=== PATIENT | female | born 2000 | race Caucasian/White ===

== ENCOUNTER 2022-01-19 08:06 | Outpatient (CLI) | payer BC | END 2022-01-19 08:07 | disposition home or self-care (01) | LOC: CT 08:06 | PROVIDERS: ATTEND Physician Assistant Medical | DX: R11.2 Nausea with vomiting, unspecified (principal); R51.9 Headache, unspecified; R42 Dizziness and giddiness | CPT/HCPCS: 70450 ==

== ENCOUNTER 2022-04-21 21:42 | Emergency (ER) | payer BC | END 2022-04-21 22:07 | disposition home or self-care (01) | LOC: ERS 21:42 | DX: B34.9 Viral infection, unspecified (principal); D64.9 Anemia, unspecified; Z20.822 Contact with and (suspected) exposure to COVID-19 | CPT/HCPCS: 99283; U0003; U0005 ==